=== PATIENT | male | born 1980 | race African-American/Black ===

== ENCOUNTER 2016-09-04 23:04 | Emergency (ER) | payer MEDICAID ==
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
[~2016-09-04 23:04] MED LIST: BACTRIM DS TABL1 TAB PO; FLEXERIL10 MG PO; KEFLEX PO; NICOTINE TRANSD21 MG EXT; NO MEDICATIONS; TRAZODONE; TRAZODONE PO; VICODIN 5/1 TAB 5/50 PO; VICODIN PO; VOLTAREN75 MG PO; ZOLOFT
[2016-09-05 01:32] LABS: BASOPHIL# 0.1 X10e3 (0-0.3); BASOPHIL% 0.6 % (0-2.5); DIFF IND NO; EOSINOPHIL# 0.2 X10e3 (0-0.7); EOSINOPHIL% 1.7 % (0.0-7.0); HEMOGLOBIN 12.8 gm/dL (13.0-16.0); LYMPHOCYTE# 2.9 X10e3 (1.0-3.5); LYMPHOCYTE% 24.4 % (17.0-45.0); MEAN CELL VOLUME 96.7 FL (83-96); MEAN CORPUSCULAR HEMOGLOBIN 31.8 PG (28-34); MEAN CORPUSCULAR HGB CONC 32.9 g/dL (30-36); MEAN PLATELET VOLUME 7.2 FL (6.5-11.5); MONOCYTE# 1.2 X10e3 (0-1.0); NEUTROPHIL# 7.6 X10e3 (1.5-7.1); NEUTROPHIL% 63.3 % (40-75); PLATELET COUNT 383 X10e3 (140-420); RED BLOOD COUNT 4.03 X10e (3.90-5.60); RED CELL DISTRIBUTION WIDTH 12.7 % (11.0-15.5)
[2016-09-05 01:53] LABS: BUN/CREATININE RATIO 15.71; CALCIUM SERUM 8.6 mg/dL (8.4-10.2); CREATININE SERUM 0.7 mg/dL (0.6-1.4); GLOM FILT RATE Estimated 142.8 mL/min (>60)
[2016-09-05 01:56] LABS: POTASSIUM 2.9 mmol/L (3.5-5.1)
== END 2016-09-05 04:10 | disposition home or self-care (01) ==
LOC: CED 23:04
PROVIDERS: Emergency Medicine
DX: J18.9 Pneumonia, unspecified organism (principal); M54.2 Cervicalgia; F17.200 Nicotine dependence, unspecified, uncomplicated; V03.99XA Pedestrian with other conveyance injured in collision with car, pick-up truck or van, unspecified whether traffic or nontraffic accident, initial encounter
CPT/HCPCS: 36415; 71020; 71260; 72040; 80048; 85025; 99284; Q9967